=== PATIENT | female | born 1980 | race Hispanic/Latino ===

== ENCOUNTER 2017-04-02 06:32 | Day surgery (SDC) | payer OTHER ==
[2017-04-01 11:40] VITALS: BMI 20.7
[2017-04-02] MEDS ORDERED: Lactated Ringer's 1,000 ML IV ONE ×2 (07:33→09:40)
[2017-04-02 07:39] LABS: HEMOGLOBIN 14.9 g/dL (12.0-16.0); MEAN CELL VOLUME 90.8 fl (81.0-99.0); MEAN CORPUSCULAR HEMOGLOBIN 29.8 pg (27.0-31.0); MEAN CORPUSCULAR HGB CONC 32.8 g/dL (33.0-37.0); RED CELL DISTRIBUTION WIDTH 13.1 % (11.5-14.5); WHITE BLOOD COUNT 5.4 K/uL (4.8-10.8)
[2017-04-02] MEDS ORDERED: Propofol 10 mg/ml Inj (20 ML) ONE (07:47)
[2017-04-02] MEDS ORDERED: ePHEDrine 50 mg/ml Inj ONE (07:48)
[2017-04-02] MEDS ORDERED: Rocuronium 10 mg/ml (5 ml) ONE ×2 (07:48→10:01)
[2017-04-02] MEDS ORDERED: Midazolam 2 MG/2 ML VIAL ONE (07:48)
[2017-04-02] MEDS ORDERED: Succinylcholine 200 mg/10 ml Inj IV ONE (07:48)
[2017-04-02] MEDS ORDERED: Neostigmine Methylsulfate 3mg/3ml Syringe IV ONE (08:23)
[2017-04-02] MEDS ORDERED: Phenylephrine 10 mg/ml Inj ONE (08:24)
[2017-04-02] MEDS: Bupivacaine 0.5% Inj(30mL) ONE ×2 (09:41→09:55)
[2017-04-02] MEDS ORDERED: Dexamethasone 4 mg/1 ml ONE (10:09)
[2017-04-02] MEDS ORDERED: HYDROmorphone 0.5 mg/0.5 ml ISec IVP PRN (11:40)
[2017-04-02] MEDS ORDERED: Oxycodone/Acetaminophen 5/325 mg Tab PO PRN (11:56)
[2017-04-02 12:09] VITALS: RESP 18
[2017-04-02 16:04] VITALS: BP 136/70; PULSE 87; TEMP 98.6; O2SAT 98
--- NOTE | 2017-04-03 08:51 | OP ---
PROCEDURE DATE: 04/02/2017 SURGEON: Hilario Goddard MD. SKEWER UP: Sai Flores MD. PREOPERATIVE DIAGNOSES: Pelvic pain, dysmenorrhea, dyspareunia, and bladder pain. POSTOPERATIVE DIAGNOSES: Pelvic pain, dysmenorrhea, dyspareunia, bladder pain, and possible pelvic endometriosis. PROCEDURES PERFORMED: Cystoscopy with bilateral ureteral catheterization and injection of dye; hysteroscopy, diagnostic; robotic laparoscopy with excision of pelvic endometriosis; bilateral ureterolysis; and to be dictated separately by Dr. Flores, excision of perirectal endometriosis mass. COMPLICATIONS: None. ESTIMATED BLOOD LOSS: Minimal. SAMPLES: From left pelvic side wall, left periureteral, left ovarian fossa, posterior cervical, anterior rectal, right perirectal, right periureteral, right pelvic side wall, and right ovarian fossa. INDICATION FOR THE PROCEDURE: The patient is a 36-year-old female with a history of a prior surgery for a laparoscopic myomectomy. At that time, extensive endometriosis was found in the pelvis. It was suboptimally excised. The patient has persisted since then with significant abdominopelvic pain with a pattern suggestive of endometriosis as it is cyclic and connected to the periods. She also presented with dyspareunia. The preoperative examination revealed peritoneal signs. Also, ultrasonographically, there were a number of very small fibroids in the uterus. At this point, I do not believe that the fibroids are responsible for the patient's pain, because of most of them were very small, less than 1 cm. Prior to the surgery, the patient was counseled with regards to the risks and benefits of the procedure and the likelihood that the procedure may ameliorate her problem. She was counseled. She received a bowel prep. Also, she was advised that we would perform a cystoscopy and ureteral catheterization to highlight the ureter given the higher complexity of the procedure and her prior surgical history. She signed the consent and was taken to the operating room for the procedure. DESCRIPTION OF PROCEDURE: After adequate anesthesia was obtained, the patient was placed in the dorsal lithotomy position. All areas prone to compression were extensively padded. A time-out was called according to the hospital policy. At this point, attention was in the urethra where under direct visualization, a cystoscope was inserted. A hwang cystoscopy was performed. The bladder being free of tumors and masses. Both ureteral ostia were in the normal anatomical position. The right ureter was catheterized using a 5-Ethiopian open-ended catheter to the distal ureter and 5 mL of ICG were injected. Attention was on the left ureter, which was also cannulized to the distal ureter and 5 mL of ICG were then injected. The cystoscope was removed and it was replaced by a 16-Ethiopian Melgar. At this point, attention was on the vaginal area where a speculum was placed in the vagina. The anterior lip of the cervix was grasped. The cervix was gently dilated and a hysteroscope was inserted into the uterine cavity. The cavity appeared to be did not seem to have any submucous or any visible fibroids. It appeared to be a normal cavity, did not appear to be an enlarged cavity. The cervical canal was also normal. There were no polyps or lesions or anything on the cervix. At this point, the hysteroscope was removed and the anterior lip of the cervix was grasped. The uterine manipulator was placed in the uterus and attention was on the abdomen. An open laparoscopy was performed with usual technique. The peritoneum was entered in a blunt fashion. The cannula was placed, and under direct visualization, 3 additional ports were placed; left upper quadrant, left mid quadrant, and right upper quadrant. The da Aneesh Xi robot was then docked. The findings were as follows: Upper abdomen appeared to be normal. No evidence of any endometriosis implant on the diaphragm. Appendix was normal. There were some adhesions between the epiploic appendix and the left ovary. The sigmoid was firmly adherent to the left pelvic sidewall after elevating the ovary. The left ovary was otherwise normal. This was the area where I had identified reviewing the images of her prior surgery where the site of endometriosis had been visualized and lasered. I was able to bluntly peel off the colon from the left pelvic sidewall and after identifying the ureter utilizing florescent technology, the retroperitoneal space was entered and a dissection was performed from the very high brim of the pelvis overlying the left iliac vein all the way down almost to the reflection of the bowel. This was done in a [id number] fashion. The ureter was then lateralized and the area of peritoneum containing what appeared to be inflammatory type peritoneum, possibly endometriosis, was excised. An additional area proximal to this was also excised with great care to avoid the ureter. Additionally, there was an area in the left ovarian fossa, there appeared to be abnormal inflamed, suggestive of endometriosis. This was elevated and progressively excised in a [id number] fashion. At this point, attention was on the posterior aspect of the cervix where in the posterior cervical margin in confluence with the rectovaginal space, an area also suspicious of endometriosis was identified. The peritoneum in this area was peeled off in a [id number] fashion with great care to avoid the bowel. Attention then was on the right-hand side of the pelvis. The right ovary was stuck in an inclusion pocket in the peritoneum and the right ovary was fitting completely inside of it. The ovary was elevated and the peritoneum was grasped, the ureter was identified. The internal iliac as well as the obliterated umbilical artery was clearly visualized, tenting up behind the peritoneum. The peritoneum was then dissected progressively, dissecting off the ureter, utilizing florescent technology and a whole swath of peritoneum abnormal looking was also excised without any problems. The ovary was dropped back into the pelvis. The ovary appeared to be normal without having any lesions of endometriosis on the ovary. There were also lesions of endometriosis in the right ovarian fossa which was also excised. At this point, Dr. Flores proceeded with it, after we had identified an area in the right perirectal space that had small lesions that were suspicious for endometriosis, he proceeded with excising that area, but he will dictate that separately in a separate dictation. At this point, it was checked for hemostasis and that appeared to be excellent. The anterior compartment was also examined. There appeared to be no lesions in the peritoneum, in another areas, in the bladder, or anywhere else. The da Aneesh robot was undocked. The abdomen was desufflated. The instruments were then removed. The incision was closed in layers with 0 PDS on the fascia and 4-0 Monocryl on the skin. There was a small subcutaneous bleeder on the right-hand side of the patient, in the right upper quadrant port, that had slight bleeding, it was controlled with bipolar coagulation. At this point, it was checked for hemostasis again which was excellent. The instruments were removed from the vagina. The patient was placed in dorsal supine position, woken up and taken to recovery room in excellent condition. Hilario Goddard MD MTDD
--- NOTE | 2017-04-07 08:33 | PCM.OP ---
Operative Report - Operative Report Date of Surgery/Procedure: 04/02/17 Time of Surgery/Procedure: 10:00 Surgeon: Dr. Sai Flores Resource Economist: Dr. Hilario Goddard Anesthesia/Sedation: general/Dr. June Pre-Operative Diagnosis: abdominal pain and endometriosis Post-Operative Diagnosis: endometriosis involving the rectum Indication for Surgery: as above Operative Findings: rectal endometriosis Procedure/Operation Description: 1-Excision rectal endometriosis. Brief History : Dr. Goddard, during his robotic operation for endometriosis discovered rectal involvement and obtained a general surgery intraoperative cosultation. Decscription of the Procedure: Dr. Goddard had already initiated the robotic procedure (separate dictation Dr. Goddard). After taking control of the robotic console the lesion inquestin involved the distal rectum. Using blunt and sharp disection with the aid of electrocautery the lesion was incised circumferentially and dissected from the rectal wall with meticulous attention to hemostasis. The lesion was removed en-bloc and sent separately to pathology for analysis. The area of dissection was examined and hemostasis was deemed adeqaute. The operation was then turned over again to Dr. Goddard (separate dictation Dr. Goddard). Estimated Blood Loss: 25 cc Complications: none Discharge & Condition: stable
== END 2017-04-02 16:00 | disposition home or self-care (01) ==
LOC: H.OPSURG 06:32
PROVIDERS: ATTEND Obstetrics & Gynecology Reproductive Endocrinology
DX: R10.2 Pelvic and perineal pain (principal); N94.6 Dysmenorrhea, unspecified; N94.10 Unspecified dyspareunia; R39.89 Other symptoms and signs involving the genitourinary system; N80.3 Endometriosis of pelvic peritoneum; N80.0 Endometriosis of uterus; D25.9 Leiomyoma of uterus, unspecified; N80.1 Endometriosis of ovary; N80.5 Endometriosis of intestine
CPT/HCPCS: 36415; 53899; 58578; 58662; 85027; 86850; 86900; 88305; C1729; J0330; J0690; J1100; J1170; J1885; J2001; J2250; J2370; J2405; J2704; J2710; J3010; J7030; J7040; J7120